=== PATIENT | female | born 1995 | race Caucasian/White ===

== ENCOUNTER 2016-08-23 20:13 | Emergency (ER) | payer MEDICAID ==
[2016-08-23 20:42] VITALS: BP 139/83; PULSE 97; RESP 16; TEMP 98.8; O2SAT 100
--- NOTE | 2016-08-23 21:34 | UCPHY ---
H & P Time Seen by Provider: 08/23/16 20:53 Patient Type: Established HPI/ROS: This patient complains of pain to the dorsum of her left wrist extends to the proximal dorsum of her left hand over the past 2-3 weeks. It was atraumatic in onset. She does use her affected extremity lot to lift boxes and type work. She states the pain has become sharp in nature with extension of the wrist. At rest it is moderate with extension it goes to 7/10 in intensity. She notes no other exacerbating or alleviating factors. No other joints are affected. ROS: No fevers or other constitutional symptoms. Integumentary: No associated rash or skin discoloration. Musculoskeletal: No associated swelling. Neuro: No numbness or tingling. 5 point ROS is otherwise negative. Past Medical/Surgical History: Otherwise healthy Smoking Status: Never smoked Physical Exam: Physical Exam Vital signs are normal. General: No acute distress HEENT: Atraumatic. Eyes: Pupils equal and react to light. Extraocular motions are intact. Lungs: No respiratory distress. Cardiac: Brisk capillary refill is intact throughout. Pulses are 2+ and symmetric in the affected extremity. Skin: No rash or pallor. Extremities: Atraumatic normal except for the left upper extremity Left upper extremity: There is no shoulder or elbow symptoms or tenderness. Left wrist is notable for tenderness to the dorsum of the wrist without associated swelling or ecchymosis. This tenderness extends to the proximal dorsum of the hand. The symptoms increased with extension versus resistance. There is no significant volar tenderness. Tinel's test is negative. Neuro: Alert with no sensorimotor deficits in the affected extremity. Initial differential diagnosis: Tenosynovitis, bony abnormality, strain Constitutional: Initial Vital Signs Temperature (C) 37.1 C 08/23/16 20:39 Heart Rate 97 08/23/16 20:39 Respiratory Rate 16 08/23/16 20:39 Blood Pressure 139/83 H 08/23/16 20:39 O2 Sat (%) 100 08/23/16 20:39 O2 Delivery Mode Room Air Allergies/Adverse Reactions: codeine Allergy (Verified 08/23/16 20:37) Home Medications: Medication Instructions Recorded NK [No Known Home Meds] 08/23/16 MDM/Departure - MDM Diagnostics: Wrist x-ray: Normal by my interpretation ED Course/Re-evaluation: I counseled patient regarding tenosynovitis and she is placed in a Velcro wrist splint. - Depart Disposition: Home, Routine, Self-Care Clinical Impression: Extensor tenosynovitis of left wrist Condition: Good Instructions: Tenosynovitis (ED) Additional Instructions: Diagnosis: Extensor tenosynovitis of wrist Plan: Ice 20 minutes at a time 3 times a day Ibuprofen 400-600 mg every 6 hours as needed. Tylenol in addition Gentle stretches each morning for 15-20 minutes as described Wear the wrist brace regularly until the symptoms improve likely over the next 7 -10 days. Follow up with Dr. Brantley-orthopedic surgeon for further evaluation if her symptoms are not improving with the treatment plan. Referrals: Chelsea Malloy MD [Primary Care Provider] - As per Instructions Shyla Brantley MD [Medical Doctor] - As per Instructions - PQRS PQRS Measurement: NA
== END 2016-08-23 21:54 | disposition home or self-care (01) ==
LOC: CED 20:13
PROC: 2W3DX1Z Immobilization of Left Lower Arm using Splint (ICD-10-PCS; principal; 2016-08-23)
DX: M65.88 Other synovitis and tenosynovitis, other site (principal); Z88.5 Allergy status to narcotic agent
CPT/HCPCS: 73110-PO; 99214-PO; G0463-PO; L3908

== ENCOUNTER 2016-12-10 11:08 | Emergency (ER) | payer MEDICAID ==
[2016-12-10 11:19] VITALS: BP 142/77; PULSE 101; RESP 18; TEMP 98; O2SAT 97
--- NOTE | 2016-12-10 11:28 | EDPHY ---
H & P Stated Complaint: c/o top of rt foot pain/swelling/redness x 2 days - no trauma Time Seen by Provider: 12/10/16 11:15 HPI/ROS: Chief complaint, right foot pain HPI: 21-year-old female complaining of pain and some swelling to the dorsum of her right foot. She does not recall any injuries. Is mildly tender to walk and is sore to touch. At 1st she may have had a bite. There has not been any spreading redness. Is not warm to the touch. No fevers or chills. No numbness or tingling. She is able to weight bear with very minimal discomfort. ROS: 10 point Review of Systems is negative except as noted in the HPI. Physical exam: General: Awake, alert, no acute distress Right leg: Knee is nontender, full range of motion without pain, ankle is nontender, full range of motion without pain. There is some mild swelling to the dorsum of her right foot. There is some minimal tenderness over the site. No bony deformity. She has full range of motion but some discomfort with plantar flexion. No plantar tenderness or deformity. No calcaneal tenderness. No significant erythema. Sensations intact in all dermatomes, capillary refills less than 2 seconds. - Personal History LMP (Females 10-55): Irregular Current Tetanus Diphtheria and Acellular Pertussis (TDAP): Yes Tetanus Vaccine Date: WITHIN 10 YRS - Medical/Surgical History Hx Asthma: No Hx Chronic Respiratory Disease: No Hx Diabetes: No Hx Cardiac Disease: No Hx Renal Disease: No Hx Cirrhosis: No Hx Alcoholism: No Hx HIV/AIDS: No Hx Splenectomy or Spleen Trauma: No Other PMH: PCP Akin Malloy. ADD. Cholecystectomy - Social History Smoking Status: Never smoked Constitutional: Initial Vital Signs Temperature (C) 36.6 C 12/10/16 11:17 Heart Rate 101 H 12/10/16 11:17 Respiratory Rate 18 12/10/16 11:17 Blood Pressure 142/77 H 12/10/16 11:17 O2 Sat (%) 97 12/10/16 11:17 O2 Delivery Mode Room Air Allergies/Adverse Reactions: codeine Allergy (Verified 08/23/16 20:37) Home Medications: Medication Instructions Recorded NK [No Known Home Meds] 08/23/16 Medical Decision Making ED Course/Re-evaluation: 21-year-old female with likely foot sprain. There are no obvious signs of infection at this time. She has minimal tenderness. There are no indications for x-ray at this time given there is no bony tenderness she is weight-bearing without significant difficulty. She has been advised to rest, ice, elevate, ibuprofen and acetaminophen as needed. If she develops any redness which is expanding she is return emergency depart. Otherwise follow up with physician in a week she is still having any discomfort. Departure - Departure Disposition: Home, Routine, Self-Care Clinical Impression: Foot sprain Condition: Good Instructions: Foot Sprain (ED), RICE Therapy (ED) Additional Instructions: You may take ibuprofen alternating with acetaminophen as needed for pain. Wear a supportive athletic shoe. Return to the emergency depart for increasing swelling, increasing redness, fevers, chills, or increasing pain. If you're still having pain in about a week follow up with primary care physician for further evaluation.
== END 2016-12-10 11:34 | disposition home or self-care (01) ==
LOC: CED 11:08
DX: S93.601A Unspecified sprain of right foot, initial encounter (principal); X58.XXXA Exposure to other specified factors, initial encounter

== ENCOUNTER → 2017-04-09 | Outpatient (CLI) | payer MEDICAID | LOC: BRMIMAGING 11:17 | PROVIDERS: ATTEND Family Medicine | DX: N92.1 Excessive and frequent menstruation with irregular cycle (principal); R23.2 Flushing; I47.9 Paroxysmal tachycardia, unspecified; R51 Headache | CPT/HCPCS: 76856-PO ==

== ENCOUNTER 2017-12-16 22:00 | Emergency (ER) | payer MEDICAID ==
[2017-12-16] MEDS ORDERED: ACETAMINOPHEN 500 MG TAB PO ONE (22:15)
[2017-12-16] MEDS ORDERED: IBUPROFEN 600 MG TAB PO ONE (22:15)
[2017-12-16 22:19] VITALS: BP 138/78
--- NOTE | 2017-12-16 22:39 | EDPHY ---
H & P Time Seen by Provider: 12/16/17 22:07 HPI/ROS: Shortly prior to arrival this patient "missed a curb" while walking, causing her to invert her ankle. She heard a pop and had immediate sharp painful lateral ankle. She did not fall all the way to the ground, explaining that she broke her fall with her hands and denies any other injuries. She reports severe lateral ankle pain and moderate swelling. She cannot bear weight on the affected left ankle since the injury occurred. Her mother brought her in by private vehicle for evaluation. ROS: Neuro: No numbness or tingling. Musculoskeletal: No significant medial ankle pain or other injuries from the fall. Integumentary: No lacerations or abrasions. 5 point ROS is otherwise negative Past Medical/Surgical History: Obesity Smoking Status: Never smoked Physical Exam: Physical Exam Vital signs are normal. General: No acute distress HEENT: Atraumatic. Eyes: Pupils equal and react to light. Extraocular motions are intact. Lungs: No respiratory distress. Cardiac: Brisk capillary refill is intact throughout. Pulses are 2+ and symmetric in the affected extremity. Skin: No rash or pallor. Extremities: Atraumatic normal except for left ankle Left ankle: Patient has moderate lateral swelling with associated tenderness anterior to the lateral malleolus and at the lateral malleolus with associated moderate swelling. There is no medial ankle swelling or tenderness. No Achilles swelling or tenderness, no 5th metatarsal swelling or tenderness. Anterior drawer is negative for significant laxity. Neuro: Alert with no sensorimotor deficits in the affected lower extremity. Initial differential diagnosis: Ankle sprain, ankle fracture, traumatic hematoma Constitutional: Initial Vital Signs Temperature (C) 37.0 C 12/16/17 22:10 Heart Rate 103 H 12/16/17 22:10 Respiratory Rate 18 12/16/17 22:10 Blood Pressure 138/78 H 12/16/17 22:10 O2 Sat (%) 97 12/16/17 22:10 O2 Delivery Mode Room Air Allergies/Adverse Reactions: codeine Allergy (Intermediate, Verified 12/16/17 22:14) Itching paroxetine [From Paxil] Allergy (Intermediate, Verified 12/16/17 22:14) Other-Enter Comments Home Medications: Medication Instructions Recorded Metoprolol Tartrate 12/16/17 Nitrofurantoin Macrobid 12/16/17 Prozac 10 MG (*) 12/16/17 MDM/Departure - MDM Diagnostics: Three-view Ankle x-ray: Negative for fracture by my interpretation there is mild soft tissue swelling laterally Imaging: I viewed and interpreted images myself Medications Given: Discontinued Medications Acetaminophen (Tylenol) 1,000 mg PO EDNOW ONE Stop: 12/16/17 22:16 Last Admin: 12/16/17 22:24 Dose: 1,000 mg Ibuprofen (Motrin) 600 mg PO EDNOW ONE Stop: 12/16/17 22:16 Last Admin: 12/16/17 22:23 Dose: 600 mg ED Course/Re-evaluation: Patient is placed in a Velcro stirrup splint. I counseled her regarding ankle sprain rehab gentle stretches and exercises. She is treated with ibuprofen Tylenol with partial relief of pain. She will follow up with Orthopedics if she is not improving with treatment plan of ice, NSAIDs, crutches. - Depart Disposition: Home, Routine, Self-Care Clinical Impression: Ankle sprain Qualifiers: Encounter type: initial encounter Involved ligament of ankle: anterior talofibular ligament Laterality: left Qualified Code(s): S93.492A - Sprain of other ligament of left ankle, initial encounter Condition: Good Instructions: Ankle Sprain (ED), Crutch Instructions (ED) Additional Instructions: Diagnosis: Ankle sprain Plan: Ibuprofen-400 600 mg per 6 hours as needed for pain and swelling. Ice 20 minutes at a time 3 times a day or more for the next few days. Stirrup splint whenever you're up and about until your symptoms resolve. Tylenol in addition if needed for pain. Use crutches initially until it no longer hurts to bear weight. Then start your ankle rehabilitation exercises to include "the alphabet", gentle ankle stretches in the 4 directions, and then manual resistance strengthening exercises in the 4 directions daily for the next several months. Call the orthopedic M.D. listed below to arrange a followup appointment if you' re not improving with the treatment plan over the next week or so. Stand Alone Forms: Work Excuse Referrals: Juaquin Duran MD [Medical Doctor] - As per Instructions
== END 2017-12-16 23:00 | disposition home or self-care (01) ==
LOC: CED 22:00
DX: S93.492A Sprain of other ligament of left ankle, initial encounter (principal); X50.9XXA Other and unspecified overexertion or strenuous movements or postures, initial encounter; Y99.8 Other external cause status; Y93.01 Activity, walking, marching and hiking
CPT/HCPCS: 73610-PO; L4350